=== PATIENT | female | born 1950 | race Caucasian/White ===

== ENCOUNTER 2024-01-17 13:01 | Outpatient (OUT) | payer MEDICARE, SELFPAY | END 2024-01-17 13:02 | disposition home or self-care (01) | LOC: PST 13:02 | PROVIDERS: PCP Family Medicine; Visit Provider Surgery | DX: Z01.818 Encounter for other preprocedural examination (principal); Z12.11 Encounter for screening for malignant neoplasm of colon ==

== ENCOUNTER 2024-01-23 08:42 | Day surgery (SDC) | payer MEDICARE, SELFPAY ==
[2024-01-23 08:59] VITALS: BP 144/79; PULSE 90; TEMP 36.1; O2SAT 97; BMI 26.4
[2024-01-23] MEDS: LACTATED RINGER'S SOLUTION 1,000 ML 50 ML IV (09:13)
[2024-01-23 10:22] VITALS: BP 110/64; PULSE 75; TEMP 36.3; O2SAT 96
--- NOTE | 2024-01-23 10:28 | W.PM.PROCNOT ---
Date of procedure: 01/23/24 Pre-op diagnosis: screening colonoscopy Post-op diagnosis: other (biopsy at 25cm, sigmoid diverticulosis ) Procedure: Previous c-scope 2014 PROCEDURE: The patient was given IV sedation per anestheisa.? The patient's SPO2 remained above 90% throughout the procedure. The colonoscope was inserted per rectum and advanced under direct vision to the cecum with some difficulty.? The prep was good Findings: Terminal ileum os: normal Cecum/Ascending colon: normal Transverse colon: normal Descending/Sigmoid colon: mild diverticulosis and 25cm flat polyp removed with cold biopsy forceps Rectum/Anus: examined in normal and retroflexed positions and was normal Withdrawal Time was (minutes): 15 The colon was decompressed and the scope was removed.? The patient tolerated the procedure well. Recommendations/Plan: 1.? Lifestyle and dietary modifications as discussed 2.? F/U Biopsy results, either 5-10 year repeat c-scope or sooner depending on results 3.? Will call with biopsy results 4.? Discussed with the family Surgeon: Soren Paulson Estimated blood loss (mL): 0 Pathology: other (25cm flat polyp ) Condition: stable Disposition: PACU
[2024-01-23 10:37] VITALS: BP 143/71; PULSE 63; O2SAT 99
[2024-01-23 10:55] VITALS: BP 119/77; PULSE 57; O2SAT 97
== END 2024-01-23 10:55 | disposition home or self-care (01) ==
PROVIDERS: PCP Family Medicine; Visit Provider Surgery
PROC: (CPT 45380; principal; 2024-01-23 10:00)
DX: Z12.11 Encounter for screening for malignant neoplasm of colon (principal); K63.5 Polyp of colon; K57.30 Diverticulosis of large intestine without perforation or abscess without bleeding; Z66 Do not resuscitate; F41.9 Anxiety disorder, unspecified; J45.909 Unspecified asthma, uncomplicated; Z86.16 Personal history of COVID-19; F32.A Depression, unspecified; Z90.710 Acquired absence of both cervix and uterus; E78.5 Hyperlipidemia, unspecified; G47.33 Obstructive sleep apnea (adult) (pediatric); M17.12 Unilateral primary osteoarthritis, left knee; G47.30 Sleep apnea, unspecified; Z98.51 Tubal ligation status
CPT/HCPCS: 45380; 88305; 99999; J2704